=== PATIENT | female | born 1990 | race Hispanic/Latino ===

== ENCOUNTER 2022-05-30 09:23 | Day surgery (SDC) | payer OTHER ==
[~2022-05-30] VITALS: Ht 154.9 cm; Wt 62.6 kg
[~2022-05-30 09:23] MED LIST: ALLERGY10 M2
[2022-05-30] MEDS ORDERED: PERCOCET 5/325M1 TAB PO (11:07)
[2022-05-30 12:15] VITALS: BP 104/72
== END 2022-05-30 12:36 | disposition home or self-care (01) | DRG 355 ==
LOC: ORM 09:23
PROVIDERS: ATTEND Surgery
PROC: 0WQF0ZZ Repair Abdominal Wall, Open Approach (ICD-10-PCS; principal; 2022-05-30)
DX: K42.9 Umbilical hernia without obstruction or gangrene (principal)